=== PATIENT | male | born 1960 | race Caucasian/White ===

== ENCOUNTER 2018-08-17 11:59 | Day surgery (SDC) | payer MEDICARE, OTHER ==
[~2018-08-17] VITALS: Ht 156.2 cm; Wt 50.0 kg
[~2018-08-17 11:59] MED LIST: BISA10SU61 RC; DEXT1DRO OU; ESOM40CA PO; FEXO-59 PO; FLUT16H NASAL; LEVO2.5S7 PO; LINA290C PO; METO-296 GT; METO5TAB95 GT; MOM30 GT; NUTR250L67 GT; ONDA4TAB9 PO; PROP15DR OU; SILO8CAP2 PO; SODI44SP18 NASAL
[2018-08-17] MEDS ORDERED: GLYCOPYRROLATE 0.2 MG/ML VIAL IVP ONE (12:00)
[2018-08-17] MEDS ORDERED: PROPOFOL 1% 20 ML VIAL IVP ONE (12:00)
[2018-08-17] MEDS ORDERED: SODIUM CHLORIDE 0.9% 1,000 ML IV ONE ×3 (12:00→15:55)
[2018-08-17] MEDS ORDERED: LIDOCAINE/PF 2% 5 ML VIAL INJ ONE (12:00)
== END 2018-08-17 17:30 | disposition home or self-care (01) ==
LOC: SURGERY 11:59
PROVIDERS: ATTEND Internal Medicine Gastroenterology
DX: K22.10 Ulcer of esophagus without bleeding (principal); K29.70 Gastritis, unspecified, without bleeding; G80.9 Cerebral palsy, unspecified; K21.9 Gastro-esophageal reflux disease without esophagitis; G40.909 Epilepsy, unspecified, not intractable, without status epilepticus; Z79.899 Other long term (current) drug therapy; Z88.8 Allergy status to other drugs, medicaments and biological substances; Z86.010 Personal history of colon polyps; Z87.442 Personal history of urinary calculi; Z87.01 Personal history of pneumonia (recurrent)
CPT/HCPCS: 43239; 88305; 88312; C1769; J2704; J3490 ×2; J7030